=== PATIENT | male | born 2000 | race Caucasian/White ===

== ENCOUNTER 2021-08-15 14:50 | Emergency (ER) | payer OTHER ==
--- NOTE | 2021-08-15 16:16 | CT ---
Head CT Technique: Multiple axial sections through the brain were obtained. Intravenous contrast was not utilized. Reconstructed coronal and sagittal images were obtained. Comparison: No prior intracranial imaging is available. Findings: Ventricles along with basal cisterns and sulci over the convexities are within normal limits for the patient's age. No abnormal parenchymal densities are seen. No evidence of intracranial hemorrhage is seen. No midline shift or mass-effect is seen. Bone window settings were reviewed. Visualized mastoid sinuses and paranasal sinuses show nothing acute. No acute calvarial abnormality is appreciated. Impression: 1. Nothing acute is appreciated on noncontrast head CT study. Diagnostic code #1
--- NOTE | 2021-08-15 16:25 | US ---
Testicular ultrasound: Multiple real-time images of the testicles were obtained. Comparison: No prior testicular imaging is available. Findings: Right and left testicles appear homogeneous. No intratesticular abnormality is seen. Both arterial and venous blood flow are seen within the testicles. No significant hydrocele is seen on either side. Left epididymis is minimally heterogeneous which is likely incidental. No additional abnormality is appreciated. Measurements: Right testicle: 4.3 x 2.1 x 2.8 cm Left testicle: 4.5 x 2.0 x 3.3 cm Impression: 1. Findings as noted above. Nothing acute is appreciated. Diagnostic code #1
--- NOTE | 2021-08-15 16:26 | CR ---
Right shoulder: 3 views of the right shoulder were obtained. Comparison: No prior shoulder study is available. Acromioclavicular joint and glenohumeral joints are within normal limits. No fracture, dislocation or other bony abnormality is seen. No abnormal soft tissue calcifications are seen. Impression: 1. Nothing acute is appreciated on right shoulder study. Diagnostic code #1
--- NOTE | 2021-08-15 17:56 | EDM.PDOC ---
ED HPI GENERAL MEDICAL PROBLEM - General Chief Complaint: General Stated Complaint: NAUSEA RIGHT SIDE PAIN Time Seen by Provider: 08/15/21 15:20 Source of Information: Reports: Patient History Limitations: Reports: No Limitations - History of Present Illness INITIAL COMMENTS - FREE TEXT/NARRATIVE: The patient presents with right sided headache, right sided neck pain, right shoulder and right testicle pain. This has been going on for a few days. He did fall on Friday but he did not hurt himself. He brought that up because it felt like his right leg was not working right. He has no fever, chills, cough, chest pain, shortness of breath, abdominal pain, or vomiting. He did have slight nausea a few days ago. He has no pain with urination, discharge or rashes in the groin area. He is not currently sexually active. Onset: Gradual Duration: Day(s): Location: Reports: Head, Neck, Upper Extremity, Right (shoulder), Other (right testicle) Quality: Reports: Sharp Severity: Moderate Improves with: Reports: None Worsens with: Reports: None Associated Symptoms: Reports: Headaches. Denies: Chest Pain, Cough, Fever/Chills, Nausea/Vomiting, Shortness of Breath Right Scrotum Pain Score (Numeric/FACES): 5 - Related Data Allergies Allergy/AdvReac Type Severity Reaction Status Date / Time No Known Allergies Allergy Verified 08/15/21 15:22 Home Meds: Home Meds . [No Known Home Meds] 08/15/21 [History] Past Medical History HEENT History: Reports: Other (See Below) Other HEENT History: eye surgeries Respiratory History: Reports: Other (See Below) Other Respiratory History: seasonal allergies Musculoskeletal History: Reports: Other (See Below) Other Musculoskeletal History: right ulna repair, bilateral big toe repair - Past Surgical History HEENT Surgical History: Reports: Tonsillectomy Social & Family History - Tobacco Use Tobacco Use Status *Q: Never Tobacco User Second Hand Smoke Exposure: No - Caffeine Use Caffeine Use: Reports: Soda - Recreational Drug Use Recreational Drug Use: No ED ROS GENERAL - Review of Systems Review Of Systems: See Below Constitutional: Reports: No Symptoms HEENT: Reports: No Symptoms Respiratory: Reports: No Symptoms Cardiovascular: Reports: No Symptoms Endocrine: Reports: No Symptoms GI/Abdominal: Reports: Nausea. Denies: Abdominal Pain, Vomiting : Reports: No Symptoms Musculoskeletal: Reports: Shoulder Pain (right) ED EXAM, GENERAL - Physical Exam Exam: See Below Exam Limited By: No Limitations General Appearance: Alert, No Apparent Distress Ears: Normal External Exam Nose: Normal Inspection Head: Atraumatic, Normocephalic Neck: Normal Inspection, Supple, Tender Lateral (mild to the right) Respiratory/Chest: No Respiratory Distress, Lungs Clear, Normal Breath Sounds Cardiovascular: Regular Rate, Rhythm, No Edema, No Murmur GI/Abdominal: Soft, Non-Tender, No Organomegaly, No Mass (Male) Exam: Other (No edema of the scrotum and testicles noted. There is some mild pain upon palpation to right testicle No discharge from his penis and no rashes.) Back Exam: Normal Inspection Extremities: Normal Inspection Course - Vital Signs Last Recorded V/S: Last Vital Signs Temp 98.0 F 08/15/21 15:20 Pulse 104 H 08/15/21 15:20 Resp 20 08/15/21 15:20 BP 176/99 H 08/15/21 15:20 Pulse Ox 98 08/15/21 15:20 - Orders/Labs/Meds Orders: Active Orders 24 hr Category Date Time Status Cardiac Monitoring [RC] . DIRECTED Care 08/15/21 15:42 Active Labs: Laboratory Tests 08/15/21 08/15/21 08/15/21 Range/Units 16:20 16:20 16:50 WBC 7.63 (4.23-9.07) K/mm3 RBC 5.55 (4.63-6.08) M/mm3 Hgb 15.7 (13.7-17.5) gm/dl Hct 47.7 (40.1-51.0) % MCV 85.9 (79.0-92.2) fl MCH 28.3 (25.7-32.2) pg MCHC 32.9 (32.2-35.5) g/dl RDW Std Deviation 40.6 (35.1-43.9) fL Plt Count 258 (163-337) K/mm3 MPV 11.9 (9.4-12.3) fl Neut % (Auto) 63.5 (34.0-67.9) % Lymph % (Auto) 27.5 (21.8-53.1) % [place] % (Auto) 8.0 (5.3-12.2) % Eos % (Auto) 0.5 L (0.8-7.0) Baso % (Auto) 0.4 (0.1-1.2) % Neut # (Auto) 4.84 (1.78-5.38) K/mm3 Lymph # (Auto) 2.10 (1.32-3.57) K/mm3 [place] # (Auto) 0.61 (0.30-0.82) K/mm3 Eos # (Auto) 0.04 (0.04-0.54) K/mm3 Baso # (Auto) 0.03 (0.01-0.08) K/mm3 Sodium 141 (136-145) mEq/L Potassium 3.9 (3.5-5.1) mEq/L Chloride 105 (98-107) mEq/L Carbon Dioxide 27 (21-32) mEq/L Anion Gap 12.9 (5-15) BUN 12 (7-18) mg/dL Creatinine 0.9 (0.7-1.3) mg/dL Est Cr Clr Drug Dosing 135.19 mL/min Estimated GFR (MDRD) > 60 (>60) mL/min BUN/Creatinine Ratio 13.3 L (14-18) Glucose 99 (70-99) mg/dL Calcium 9.0 (8.5-10.1) mg/dL Total Bilirubin 0.4 (0.2-1.0) mg/dL AST 20 (15-37) U/L ALT 48 (16-63) U/L Alkaline Phosphatase 74 (46-116) U/L C-Reactive Protein <0.2 (<1.0) mg/dL Total Protein 8.3 H (6.4-8.2) g/dl Albumin 4.5 (3.4-5.0) g/dl Globulin 3.8 gm/dL Albumin/Globulin Ratio 1.2 (1-2) Urine Color Yellow (Yellow) Urine Appearance Clear (Clear) Urine pH 5.5 (5.0-8.0) Ur Specific [place] > or = 1.030 (1.005-1.030) Urine Protein Negative (Negative) Urine Glucose (UA) Negative (Negative) Urine Ketones Negative (Negative) Urine Occult Blood Negative (Negative) Urine Nitrite Negative (Negative) Urine Bilirubin Negative (Negative) Urine Urobilinogen 0.2 (0.2-1.0) Ur Leukocyte Esterase Negative (Negative) Urine RBC 0-5 (0-5) /hpf Urine WBC 0-5 (0-5) /hpf Ur Epithelial Cells 0-5 (0-5) /hpf Urine Bacteria Few (FEW) /hpf Urine Mucus Moderate H (FEW) /hpf - Re-Assessments/Exams Free Text/Narrative Re-Assessment/Exam: 08/15/21 17:55 I ordered labs, CT of his head, right shoulder x-ray and an US of his scrotum. The x-ray of his shoulder looks good. His head CT looks good. The US of his scrotum looks good. His CBC and CMP look good. His UA shows no UTI. I am not finding a reason why he is having the pain. It is odd that it is all on the right side. I will discharge him home to follow up with his doctor. Departure - Departure Time of Disposition: 18:00 Disposition: Home, Self-Care 01 Condition: Good Clinical Impression: Neck pain, Right testicular pain Headache Qualifiers: Headache type: other headache syndrome Qualified Code(s): G44.89 - Other headache syndrome Right shoulder pain Qualifiers: Chronicity: acute Qualified Code(s): M25.511 - Pain in right shoulder - Discharge Information *PRESCRIPTION DRUG MONITORING PROGRAM REVIEWED*: Not Applicable *COPY OF PRESCRIPTION DRUG MONITORING REPORT IN PATIENT WILMA: Not Applicable Referrals: Adriano Tucker MD [Primary Care Provider] - 1 Week Additional Instructions: Drink plenty of fluids. Take tylenol or motrin as needed for pain. Ice the areas that hurt. That can sometimes help. Follow up with Dr Tucker within a week. Please return if you are worse. Sepsis Event Note (ED) - Focused Exam Vital Signs: Vital Signs Temp Pulse Resp BP Pulse Ox 08/15/21 15:20 98.0 F 104 H 20 176/99 H 98 - My Orders Last 24 Hours: My Active Orders 08/15/21 15:42 Cardiac Monitoring [RC] . DIRECTED - Assessment/Plan Last 24 Hours: My Active Orders 08/15/21 15:42 Cardiac Monitoring [RC] . DIRECTED
== END 2021-08-15 18:10 | disposition home or self-care (01) ==
LOC: JD.ED 14:50
DX: G44.89 Other headache syndrome (principal); N50.811 Right testicular pain; M54.2 Cervicalgia; M25.511 Pain in right shoulder
CPT/HCPCS: 36415; 70450; 70450-26; 73030-26-RT; 73030-RT; 76870; 76870-26; 80053; 81001; 85025; 86140; 93975; 99283; 99284-25

== ENCOUNTER 2024-07-17 10:14 | Emergency (ER) | payer OTHER ==
[2024-07-17] MEDS: Diphtheria,Pertussis(Acell),Tetanus Vaccine 0.5 ML Syringe IM ONE (10:52)
== END 2024-07-17 11:35 | disposition home or self-care (01) ==
LOC: JD.ED 10:14
DX: S92.421A Displaced fracture of distal phalanx of right great toe, initial encounter for closed fracture (principal); Z23 Encounter for immunization; W24.0XXA Contact with lifting devices, not elsewhere classified, initial encounter
CPT/HCPCS: 73630-26-RT; 73630-RT; 90471; 90715; 99283; 99283-25